=== PATIENT | male | born 1970 | race Caucasian/White ===

== ENCOUNTER 2022-05-25 15:33 | Emergency (ER) | payer BC ==
[2022-05-25] MEDS ORDERED: cefTRIAXone 1 GM Vial IM ONE (16:05)
[2022-05-25] MEDS ORDERED: Lidocaine 1% 5 ML VIAL INJECT ONE (16:13)
== END 2022-05-25 16:50 | disposition home or self-care (01) ==
LOC: KA.ED 15:33
DX: L03.115 Cellulitis of right lower limb (principal); E11.9 Type 2 diabetes mellitus without complications
CPT/HCPCS: 36415; 80053; 85025; 96372; 99283; J0696